=== PATIENT | male | born 1960 | race Caucasian/White ===

== ENCOUNTER → 2017-10-11 | Outpatient (CLI) | payer BC ==
[~2017-10-11] MED LIST: BUDE10.25 IH; CEP500 PO; MULT-1335 PO; OMEG500C7 PO; THYR60TA25 PO
[2017-10-11 13:21] LABS: PLATELET COUNT, AUTOMATED 243 K/uL (150-450)
== END ==
LOC: LAB 12:42
PROVIDERS: ATTEND Family Medicine
DX: Z00.00 Encounter for general adult medical examination without abnormal findings (principal); Z13.0 Encounter for screening for diseases of the blood and blood-forming organs and certain disorders involving the immune mechanism
CPT/HCPCS: 36415; 85025

== ENCOUNTER → 2017-10-20 | Outpatient (CLI) | payer BC ==
[2017-10-20 12:36] VITALS: BP 158/88
== END ==
LOC: SPU 09:33
PROVIDERS: ATTEND Family Medicine
DX: D75.1 Secondary polycythemia (principal); E29.1 Testicular hypofunction
CPT/HCPCS: 85014; 99195

== ENCOUNTER → 2017-11-24 | Outpatient (CLI) | payer BC ==
[2017-11-24 14:52] VITALS: BP 135/93
== END ==
LOC: SPU 12:58
PROVIDERS: ATTEND Family Medicine
DX: D75.1 Secondary polycythemia (principal); E29.1 Testicular hypofunction
CPT/HCPCS: 85014; 99195

== ENCOUNTER → 2018-02-23 | Outpatient (CLI) | payer BC ==
[2018-02-23 14:11] VITALS: BP 148/86
[2018-02-23 14:46] VITALS: BP 166/94
== END ==
LOC: SPU 09:05
PROVIDERS: ATTEND Family Medicine
DX: D75.1 Secondary polycythemia (principal); E29.1 Testicular hypofunction
CPT/HCPCS: 85027; 99195

== ENCOUNTER → 2018-03-08 | Outpatient (CLI) | payer BC ==
[2018-03-08 12:14] VITALS: BP 130/80
[2018-03-08 13:29] VITALS: BP 135/96
== END ==
LOC: SPU 09:49
PROVIDERS: ATTEND Family Medicine
DX: D75.1 Secondary polycythemia (principal); E29.1 Testicular hypofunction
CPT/HCPCS: 85027; 99195

== ENCOUNTER → 2018-06-16 | Outpatient (CLI) | payer BC | LOC: RESP 21:12 | PROVIDERS: ATTEND Family Medicine | DX: G47.33 Obstructive sleep apnea (adult) (pediatric) (principal); G47.37 Central sleep apnea in conditions classified elsewhere ==

== ENCOUNTER → 2018-06-28 | Outpatient (CLI) | payer BC | LOC: RESP 20:29 | PROVIDERS: ATTEND Family Medicine | DX: G47.33 Obstructive sleep apnea (adult) (pediatric) (principal) ==